=== PATIENT | female | born 1970 | race Native Hawaiian/Other Pacific Islander ===

== ENCOUNTER 2016-12-22 10:34 | Outpatient (CLI) | payer OTHER ==
[2016-12-22 11:48] LABS: POTASSIUM 5.4 mmol/L (3.6-5.2)
[2016-12-22 12:52] LABS: PLATELET COUNT 304 K/uL (152-353)
== END 2016-12-22 19:08 | disposition home or self-care (01) ==
LOC: LABW 10:34
PROVIDERS: Family Medicine
DX: E11.49 Type 2 diabetes mellitus with other diabetic neurological complication (principal); E03.8 Other specified hypothyroidism; I10 Essential (primary) hypertension; N28.89 Other specified disorders of kidney and ureter; E78.4 Other hyperlipidemia; E55.9 Vitamin D deficiency, unspecified
CPT/HCPCS: 36415; 80053; 80061; 81000; 82306; 83036; 83735; 84439; 84443; 85027; 87088

== ENCOUNTER 2017-01-11 16:52 | Outpatient (CLI) | payer OTHER ==
[2017-01-11 17:28] LABS: POTASSIUM 4.3 mmol/L (3.6-5.2)
== END 2017-01-11 19:25 | disposition home or self-care (01) ==
LOC: LABW 16:52
PROVIDERS: Family Medicine
DX: E11.49 Type 2 diabetes mellitus with other diabetic neurological complication (principal); E87.5 Hyperkalemia
CPT/HCPCS: 36415; 80048

== ENCOUNTER 2017-03-11 16:07 | Outpatient (CLI) | payer OTHER ==
[2017-03-11 17:29] LABS: POTASSIUM 4.3 mmol/L (3.6-5.2)
== END 2017-03-11 19:13 | disposition home or self-care (01) ==
LOC: LAB 16:07
PROVIDERS: Family Medicine
DX: E11.49 Type 2 diabetes mellitus with other diabetic neurological complication (principal); I10 Essential (primary) hypertension; N18.3 Chronic kidney disease, stage 3 (moderate); E87.5 Hyperkalemia
CPT/HCPCS: 80053; 81000

== ENCOUNTER 2017-09-09 12:29 | Outpatient (CLI) | payer OTHER ==
[2017-09-09 12:55] LABS: PLATELET COUNT 240 K/uL (152-353)
[2017-09-09 13:11] LABS: POTASSIUM 5.6 mmol/L (3.6-5.2)
== END 2017-09-09 21:36 | disposition home or self-care (01) ==
LOC: LAB 12:29
PROVIDERS: Family Medicine
DX: E11.65 Type 2 diabetes mellitus with hyperglycemia (principal); I12.9 Hypertensive chronic kidney disease with stage 1 through stage 4 chronic kidney disease, or unspecified chronic kidney disease; N18.4 Chronic kidney disease, stage 4 (severe)
CPT/HCPCS: 80053; 80061; 81000; 82306; 83036; 83735; 84439; 84443; 84550; 85027